=== PATIENT | male | born 1970 | race Caucasian/White ===

== ENCOUNTER → 2019-01-17 | Outpatient (CLI) | payer OTHER ==
[~2019-01-17] MED LIST: ASC500 PO; CYCL-277 PO; FIO PO; GREE1CAP5 PO; MET5 PO; MULT1CAP41 PO; ZOL5 PO
== END ==
LOC: LAB 17:59
PROVIDERS: ATTEND Urology
DX: Z00.00 Encounter for general adult medical examination without abnormal findings (principal); R30.0 Dysuria
CPT/HCPCS: 36415; 81001; 84153; 87088